=== PATIENT | male | born 1945 | race Caucasian/White ===

== ENCOUNTER 2019-05-01 11:25 | Day surgery (SDC) | payer OTHER, SELFPAY ==
[2019-05-01] VITALS (7 sets, daily range): BP systolic 112–160; BP diastolic 70–93; PULSE 61–88; RESP 16–20; TEMP 36.7–37.1; O2SAT 92–95; BMI 21.9
--- NOTE | 2019-05-01 11:30 | ED_ITS ---
Entered by Sarahy Harrell, acting as scribe for Zhang Garcia DO HPI - Extremity Injury (Upper) General: Chief Complaint: Extremity Injury, Upper Stated Complaint: finger injury/partial amputation Time Seen by Provider: 05/01/19 11:36 History of Present Illness: HPI narrative: 73 yo male presents with left ring finger injury. Pt states that he smashed his finger and the tip was amputated. Pt states that he ate a bowl of cereal and water and coffee at 730 this morning. MD complaint: injury to: left and finger Other Extremity Injury: Left: fingers (ring) Severity: moderate Review of Systems Const: Denies: fever, chills, body aches, change in appetite or change in weight Eyes: Denies: change in vision, blurry vision, blind spots, photophobia, eye discomfort or eye discharge ENMT: Denies: throat pain, uvular edema, enlarged tonsils, painful swallowing, mouth pain or swelling of lips/tongue Card: Denies: chest pain, palpitations, irregular heart rhythm or edema Resp: Denies: shortness of breath, productive cough, non-productive cough, stridor or pain on inspiration GI: Denies: abdominal pain, nausea, vomiting or vomiting blood : Denies: flank pain, difficulty urinating, painful urination or urinary frequency Musc: Reports: other (smashed left ring finger with amputation) PFSH ED PFSH: Statuses (acute, chronic, etc) shown below reflect problem list status as previously entered and may not be historically accurate Medical History Back pain (Acute) Diabetes (Acute) Gout (Acute) Hypertension (Acute) PTSD (post-traumatic stress disorder) (Acute) Surgical History H/O cystoscopy (Acute) H/O vasectomy (Acute) History of lumbar surgery (Acute) Social History Smoking and tobacco status: never smoked Physical Exam Const: COMMON NORMALS: no apparent distress, average body habitus, oriented x3, no limitations, healthy appearing, alert and well nourished HENMT: COMMON NORMALS: normocephalic, head/scalp atraumatic, hearing grossly normal bilaterally, external ears normal, EAC's normal, TM's normal bilaterally, external nose normal, nasal mucous membranes and turbinates normal, moist oral mucous membranes, oropharynx normal, dentition normal and gingiva normal HEAD & SCALP: normocephalic and atraumatic NOSE: external nose normal and nasal mucous membranes and turbinates normal EXTERNAL EAR: Yes external ears normal EXTERNAL AUDITORY CANAL: EAC's normal TYMPANIC MEMBRANE: TM's normal bilaterally THROAT: no uvular edema Eye: COMMON NORMALS: PERRL, EOMs intact bilaterally, conjunctivae normal, no scleral icterus, no papilledema, normal visual payne by confrontation and fundi normal bilaterally CONJUNCTIVA: Yes conjunctivae normal PUPIL: Yes PERRL DIRECT OPHTHALMOSCOPY: Yes no papilledema and Yes fundi normal bilaterally Neck/C-Spine: COMMON NORMALS: full ROM, no lymphadenopathy, supple, no meningeal signs, no JVD, thyroid normal and no carotid bruits THYROID: thyroid normal Chest: COMMONS NORMALS: inspection of chest normal and palpation of chest normal Resp: COMMON NORMALS: normal respiratory effort, no retractions, no use of a ccessory muscles, clear to auscultation bilaterally and percussion normal AUSCULTATION: clear to auscultation bilaterally PERCUSSION: percussion normal Cardio: COMMON NORMALS: no JVD, regular rate, regular rhythm, S1 normal heart sound, S2 normal heart sound, no gallops, no clicks, no murmurs, no rub and peripheral pulses 2+ throughout RATE: regular rate RHYTHM: regular rhythm HEART SOUNDS: S1 normal and S2 normal PERIPHERAL PULSES: pulses 2+ throughout GI: COMMON NORMALS: normal to inspection, nondistended, normoactive bowel sounds, soft to palpation, non-tender, no hepatosplenomegaly, no masses and no bruits PALPATION: Yes soft and Yes no hepatosplenomegaly : COMMON NORMALS: Yes no CVA tenderness BLADDER/KIDNEY EXAM: Yes no CVA tenderness Back/Pelvis: COMMON NORMALS: no CVA tenderness, thoracic and lumbar spine normal to inspection, no thoracic nor lumbar tenderness, thoraco-lumbar ROM normal and straight leg raise negative bilaterally Neuro: COMMON NORMALS: oriented x3 SENSORIUM/ORIENTATION: Yes alert MENINGEAL SIGNS: Yes no meningeal signs Skin: COMMON NORMALS: no rashes or lesions noted, no wounds, skin turgor normal, no jaundice, no petechiae and no mottling GENERAL SKIN EXAM: no rashes or lesions noted and turgor normal Course Vital Signs: Vital signs: Vital Signs Temperature 98.7 F 05/01/19 12:54 Pulse Rate 76 05/01/19 12:54 Respiratory Rate 18 05/01/19 12:54 Blood Pressure 139/70 05/01/19 12:54 Pulse Oximetry 92 05/01/19 12:54 MDM - Extremity Injury (Upper) Lab Data: Labs: Lab Results 05/01/19 05/01/19 05/01/19 Range/Units 11:45 11:45 11:45 WBC 9.5 (4.0-10.0) 10^3/ uL RBC 5.03 (4.1-5.3) 10^6/u L Hgb 14.8 (11.7-16.6) g/dL Hct 44.9 (42.0-52.0) % MCV 89.3 (80-94) fL MCH 29.4 (28.0-34.0) pg MCHC 33.0 (30.0-36.0) g/dL RDW 13.4 (12.1-15.1) % Plt Count 208 (130-400) 10^3/c mm MPV 9.6 (7.4-10.4) fL Neut % (Auto) 52.1 % Lymph % (Auto) 33.9 % [place] % (Auto) 7.0 % Eos % (Auto) 5.3 % Baso % (Auto) 1.4 % Neut # (Auto) 5.0 (1.8-7.7) 10^3/u L Lymph # (Auto) 3.2 (0.8-4.8) 10^3/u L [place] # (Auto) 0.7 (0.2-0.9) 10^3/u L Eos # (Auto) 0.5 (0.0-0.8) 10^3/u L Baso # (Auto) 0.1 (0.0-0.1) 10^3/u L Nucleated RBC % (a uto) 0 % Nucleated RBCs # 0.0 /100WBC PT 13.50 H (10.5-13.3) SECO NDS INR 1.00 (0.8-1.2) Sodium 143 (136-145) mmol/L Potassium 4.2 (3.5-5.1) mmol/L Chloride 101 (98-107) mmol/L Carbon Dioxide 27 (22-29) mmol/L Anion Gap 19.2 H (5-19) BUN 22 (8-23) mg/dL Creatinine 1.0 (0.7-1.2) mg/dL Glucose 102 (74-106) mg/dL POC Glucose (70-110) mg/dL Calcium 10.3 (8.5-10.5) mg/dL Total Bilirubin 0.5 (0.15-1.2) mg/dL AST 40 (0-40) U/L ALT 45 H (0-41) U/L Alkaline Phosphata se 64 (40-130) IU/L Total Protein 7.1 (6.6-8.7) g/dL Albumin 4.3 (3.5-5.2) g/dL Globulin 2.8 (1.3-4.6) g/dL 05/01/19 Range/Units 13:12 WBC (4.0-10.0) 10^3/ uL RBC (4.1-5.3) 10^6/u L Hgb (11.7-16.6) g/dL Hct (42.0-52.0) % MCV (80-94) fL MCH (28.0-34.0) pg MCHC (30.0-36.0) g/dL RDW (12.1-15.1) % Plt Count (130-400) 10^3/c mm MPV (7.4-10.4) fL Neut % (Auto) % Lymph % (Auto) % [place] % (Auto) % Eos % (Auto) % Baso % (Auto) % Neut # (Auto) (1.8-7.7) 10^3/u L Lymph # (Auto) (0.8-4.8) 10^3/u L [place] # (Auto) (0.2-0.9) 10^3/u L Eos # (Auto) (0.0-0.8) 10^3/u L Baso # (Auto) (0.0-0.1) 10^3/u L Nucleated RBC % (a uto) % Nucleated RBCs # /100WBC PT (10.5-13.3) SECO NDS INR (0.8-1.2) Sodium (136-145) mmol/L Potassium (3.5-5.1) mmol/L Chloride (98-107) mmol/L Carbon Dioxide (22-29) mmol/L Anion Gap (5-19) BUN (8-23) mg/dL Creatinine (0.7-1.2) mg/dL Glucose (74-106) mg/dL POC Glucose 115 (70-110) mg/dL Calcium (8.5-10.5) mg/dL Total Bilirubin (0.15-1.2) mg/dL AST (0-40) U/L ALT (0-41) U/L Alkaline Phosphata se (40-130) IU/L Total Protein (6.6-8.7) g/dL Albumin (3.5-5.2) g/dL Globulin (1.3-4.6) g/dL Discharge Plan Discharge Patient Disposition: Admitted As Inpatient Clinical Impression: 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
--- NOTE | 2019-05-01 11:46 | XR_ITS ---
WS: [id number] 3 views of the left fourth finger, 05/01/2019 Clinical Data: amputation Comparison: None. Findings: There is soft tissue and bony injury to the distal phalanx of the left fourth finger. There is a comm inuted fracture of the ungual tuft and loss of soft tissue beyond the midportion of the distal phalan x. The DIP and PIP joints are intact. There is a small radiopaque foreign body at the base of the dis an phalanx. XR/XR finger LT min 2V [id number] Impression: 1. Partial amputation of distal portion of left fourth distal phalanx with bone and soft tissue injury. 2. PIP and DIP joints are intact.
--- NOTE | 2019-05-01 11:46 | XR_ITS ---
WS: [id number] Portable AP upright chest, 05/01/2019 Clinical Data: preop Comparison: None. Findings: No nodules, masses or effusions are seen. The heart is normal. The pulmonary vascularity is not increased. No pneumonia or pneumothorax is seen. The aortic arch and descending aorta are minima lly tortuous. There is a left cardiophrenic fat pad or cyst. XR/XR chest 1V portable [id number] Impression: Atherosclerosis.
[2019-05-01] MEDS: morphine 4 mg/mL SDV 1 mL IVP (11:58)
[2019-05-01] MEDS: ondansetron 2 mg/ML SDV 2 mL 4 MG IVP (11:59)
[2019-05-01] MEDS: sodium chloride 0.9% 500 ML 999 ML IV (11:59)
[2019-05-01] MEDS: ceFAZolin 1,000 MG in sodium chloride 0.9% (plus) 50 ML 100 MG IV (12:05)
[2019-05-01] MEDS: tetanus-diphtheria tox (adult) 0.5 mL SDV IM (12:05)
[2019-05-01 12:14] LABS: Basophils # 0.1 10^3/uL (0.0-0.1); Basophils % 1.4 %; Eosinophils # 0.5 10^3/uL (0.0-0.8); Eosinophils % 5.3 %; Hematocrit 44.9 % (42.0-52.0); Hemoglobin 14.8 g/dL (11.7-16.6); Lymphocytes # 3.2 10^3/uL (0.8-4.8); Lymphocytes % 33.9 %; Mean Corpuscular Hemoglobin 29.4 pg (28.0-34.0); Mean Corpuscular Volume 89.3 fL (80-94); Mean Platelet Volume 9.6 fL (7.4-10.4); Monocytes # 0.7 10^3/uL (0.2-0.9); Neutrophils % 52.1 %; Nucleated Red Blood Cells % 0 %; Platelet Count 208 10^3/cmm (130-400); Red Blood Count 5.03 10^6/uL (4.1-5.3); Red Cell Distribution Width 13.4 % (12.1-15.1); White Blood Count 9.5 10^3/uL (4.0-10.0)
[2019-05-01 12:38] LABS: Alanine Aminotransferase 45 U/L (0-41); Albumin Level 4.3 g/dL (3.5-5.2); Alkaline Phosphatase 64 IU/L (40-130); Anion Gap 19.2 (5-19); Aspartate Amino Transferase 40 U/L (0-40); Blood Urea Nitrogen 22 mg/dL (8-23); Calcium 10.3 mg/dL (8.5-10.5); Carbon Dioxide 27 mmol/L (22-29); Chloride 101 mmol/L (98-107); Globulin 2.8 g/dL (1.3-4.6); Glucose 102 mg/dL (74-106); Potassium 4.2 mmol/L (3.5-5.1); Sodium 143 mmol/L (136-145); Total Bilirubin 0.5 mg/dL (0.15-1.2); Total Protein 7.1 g/dL (6.6-8.7)
[2019-05-01 13:16] LABS: Glucose Point of Care 115 mg/dL (70-110)
--- NOTE | 2019-05-01 13:26 | ANES.PREANES ---
Pre-Anesthetic Assessment Pre-Anesthetic Assessment: Height/Weight: Height 1.7 m Weight 63.503 kg Temp Pulse Resp BP Pulse Ox 98.7 F 76 18 139/70 92 05/01/19 12:54 05/01/19 12:54 05/01/19 12:54 05/01/19 12:54 05/01/19 12:54 Preop Diagnosis: Partial amputation left ring finger Proposed Procedure: Operation Date: 05/01/19 14:50 Proposed Procedures p Amputation Finger(Not Applicable) - Akanksha Diaz MD Last intake: Intake Last Liquid Date 05/01/19 Last Liquid Time 07:00 Last Solid Date 05/01/19 Last Solid Time 07:00 Social: Social History: Alcohol and Tobacco (occ cigar) Packs per day: occ Exam: Pre-Anes Outpt Exam: alert, oriented x 3, clear to auscultation bilaterally and regular rate & rhythm Airway: Submandibular: WNL Cervical ROM: Other (limited) MP: 3 Dentition: Other History/ROS: No significant history except as noted Pulmonary: Pulmonary: Asthma (mild) and Sleep apnea CV/HEM: CV/HEM: HTN : : None reported Hepatic: Hepatic: None reported GI: GI: GERD (occ) Metabolic: Metabolic: DM and Hyperlipidemia Musc/skel: Musc/skel: Lower Back Pain Neuropsych: Comments: PTSD Anesthetic Plan: ASA status: III Anesthesia: Anesthesia Evaluation and Regional (specify below) ([place]) Risk of > 500 ml blood loss (7ml/kg in children): No PFSH Anesthesia PFSH: Medical History Back pain (Acute) Diabetes (Acute) Gout (Acute) Hypertension (Acute) PTSD (post-traumatic stress disorder) (Acute) Surgical History H/O cystoscopy (Acute) H/O vasectomy (Acute) History of lumbar surgery (Acute) Social History Smoking and tobacco status: never smoked Data Anesthesia CBC & Chem 7: 05/01/19 11:45 05/01/19 11:45 Other Labs: Laboratory Results - last 48 hr 05/01/19 05/01/19 05/01/19 11:45 11:45 11:45 WBC 9.5 RBC 5.03 Hgb 14.8 Hct 44.9 MCV 89.3 MCH 29.4 MCHC 33.0 RDW 13.4 Plt Count 208 MPV 9.6 Neut % (Auto) 52.1 Lymph % (Auto) 33.9 [place] % (Auto) 7.0 Eos % (Auto) 5.3 Baso % (Auto) 1.4 Neut # (Auto) 5.0 Lymph # (Auto) 3.2 [place] # (Auto) 0.7 Eos # (Auto) 0.5 Baso # (Auto) 0.1 Nucleated RBC % (auto) 0 Nucleated RBCs # 0.0 PT 13.50 H INR 1.00 Sodium 143 Potassium 4.2 Chloride 101 Carbon Dioxide 27 Anion Gap 19.2 H BUN 22 Creatinine 1.0 Glucose 102 POC Glucose Calcium 10.3 Total Bilirubin 0.5 AST 40 ALT 45 H Alkaline Phosphatase 64 Total Protein 7.1 Albumin 4.3 Globulin 2.8 05/01/19 13:12 WBC RBC Hgb Hct MCV MCH MCHC RDW Plt Count MPV Neut % (Auto) Lymph % (Auto) [place] % (Auto) Eos % (Auto) Baso % (Auto) Neut # (Auto) Lymph # (Auto) [place] # (Auto) Eos # (Auto) Baso # (Auto) Nucleated RBC % (auto) Nucleated RBCs # PT INR Sodium Potassium Chloride Carbon Dioxide Anion Gap BUN Creatinine Glucose POC Glucose 115 Calcium Total Bilirubin AST ALT Alkaline Phosphatase Total Protein Albumin Globulin Cardiac Studies: No Data to Display
[2019-05-01] MEDS: sodium chloride 0.9% 1,000 ML 30 ML IV (13:49)
[2019-05-01] MEDS: vancomycin 1,000 MG in sodium chloride 0.9% 250 ML 250 MG IV (14:30)
--- NOTE | 2019-05-01 15:52 | PM.HPUD ---
H&P update H&P Update: DATE OF SURGERY/PROCEDURE: 05/01/19 DATE H&P PERFORMED: 05/01/19 PLANNED PROCEDURE: Operation Date: 05/01/19 14:50 Proposed Procedures p Amputation Finger(Not Applicable) - Akanksha Diaz MD Full H&P HPI: PRIMARY INDICATION/DIAGNOSIS FOR SURGICAL PROCEDURE: Degloving injury left ring finger secondary to log splitter PLANNED PROCEDURE: Revision amputation left ring finger HPI: 73-year-old gentleman was in his usual state of health when he was splitting logs. Apparently, his finger got caught in the knot of a log and when the log fell it pinching and degloving the distal tip of his finger. ROS: ROS: Review of systems is negative other than that related to the finger injury. Medications/Allergies: Current Medications: Current Medications Generic Name Dose Route Start Last Admin Trade Name Freq PRN Reason Stop Dose Admin Sodium Chloride 1,000 mls @ 30 ml s/hr 05/01/19 13:45 05/01/19 13:49 Sodium Chloride 0.9% IV 05/02/19 13:44 30 mls/hr .Q24H PAO Administration Perinent History: Medical/Surgical History: Medical History (Updated 05/01/19 @ 12:39 by ) Back pain (Acute) Diabetes (Acute) Gout (Acute) Hypertension (Acute) PTSD (post-traumatic stress disorder) (Acute) Family History: Noncontributory Social History: Social History Smoking and tobacco status: never smoked OTHER HISTORICAL INFORMATION: The patient has had surgical procedures including cystoscopy, vasectomy, lumbar surgery, and removal of a tophaceous gouty mass from his toe without issue with anesthesia Pertinent Exam Findings: PHYSICAL EXAM: alert, oriented x 3, clear to auscultation bilaterally, regular rate & rhythm and operative site marked OTHER PERTINENT EXAM FINDINGS: His left ring finger remains wrapped in gauze from the emergency department and this is not removed prior to entry into the operating room Pertinent Data: PERTINENT DATA: Hematology, coags, and chemistries are essentially normal. 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 This will require revision amputation in the operating room. Risks and complications are discussed with him and consents are signed. The patient understands and agrees to proceed. Status: Acute Code(s): S68.615A - Complete traumatic transphalangeal amputation of left ring finger, initial encounter
--- NOTE | 2019-05-01 15:53 | P.HP_ITS ---
Providers/Chief Complaint Primary Care Provider: Merritt Cook DO Chief Complaint: LEFT RING DIDGET AMPUTATION History of Present Illness Everardo Roman is a 73 year old male Medications/Allergies Home Medications Medication Instructions Recorded Confirmed Last Taken Type Celery Seed 1 tab PO DAILY 05/01/19 05/01/19 05/01/19 History allopurinol 300 mg PO DAILY 05/01/19 05/01/19 05/01/19 History aspirin 81 mg PO DAILY 05/01/19 05/01/19 05/01/19 History colchicine 0.6 mg PO BID PRN 05/01/19 05/01/19 Unknown History gabapentin 600 mg PO TID 05/01/19 05/01/19 05/01/19 History hydrochlorothiazide 25 mg PO DAILY 05/01/19 05/01/19 05/01/19 History lisinopril 40 mg PO DAILY 05/01/19 05/01/19 05/01/19 History metformin 500 mg PO BID 05/01/19 05/01/19 05/01/19 History multivitamin 1 tab PO DAILY 05/01/19 05/01/19 05/01/19 History naproxen sodium [Aleve] 220 mg PO BID PRN 05/01/19 05/01/19 05/01/19 History rosuvastatin [Crestor] 20 mg PO DAILY 05/01/19 05/01/19 05/01/19 History tramadol 50 mg PO BID PRN 05/01/19 05/01/19 Unknown History vit C-s.agsjte-bwabdf-dgbyg sd 1 cap PO DAILY 05/01/19 05/01/19 05/01/19 History [Tart Sebastian] Allergies Allergy/AdvReac Type Severity Reaction Status Date / Time No Known Allergies Allergy Verified 05/01/19 11:35 PFSH Acute PFSH: Statuses (acute, chronic, etc) shown below reflect problem list status as previously entered and may not be historically accurate Medical History Back pain (Acute) Diabetes (Acute) Gout (Acute) Hypertension (Acute) PTSD (post-traumatic stress disorder) (Acute) Surgical History H/O cystoscopy (Acute) H/O vasectomy (Acute) History of lumbar surgery (Acute) Social History Smoking and tobacco status: never smoked Vitals/I&O/Wt Last Vital Signs Temp 98.7 F 05/01/19 12:54 Pulse 76 05/01/19 12:54 Resp 18 05/01/19 12:54 BP 139/70 05/01/19 12:54 Pulse Ox 92 05/01/19 12:54 Weight last 48 hrs Weight 140 lb Data : 05/01/19 11:45 05/01/19 11:45 Coding Level of Care Code Acute Html Web Developer for Babar Ng
[2019-05-01] MEDS: vancomycin 1,000 MG SDV 1000 MG IRRIGATION (16:36)
--- NOTE | 2019-05-01 17:23 | P.OP_ITS ---
Operative Report Date of procedure: May 01, 2019 Pre-op Diagnosis: Partial amputation left ring finger Post-op diagnosis: same Procedure Done: Left ring finger DIP disarticulation with closure of complex wound and nail ablation Specimens removed/disposition: Skin and bone, disposed of. Pathology: none sent Surgeon: Akanksha Diaz Senior Technical Project Manager: [facility] OR technicians Anesthesia: MAC (with Edgard Block) Estimated blood loss (mL): 5 Tourniquet time (min): 47 IV fluids (mL): 900 Complications: None. Findings: Significant comminution of the distal phalanx with irregular soft tissue loss. Condition: stable Disposition: same day Brief History: This 73-year-old gentleman was in his usual state of health when he attempted to catch a log as it was falling off a log splitter. His finger caught in a knot in the log and was smashed between the log and the edge of the log splitter. He had a degloving type injury. He presented to the emergency department and was scheduled for intraoperative revision amputation. Procedure: The patient was brought to the operating theater. The patient had a Edgard block with MAC. The tourniquet was elevated to 250 mmHg for a total tourniquet time of 47 minutes. The patient was also given vancomycin 1 g preoperatively. The arm was then prepped and draped with DuraPrep in usual fashion with the arm draped free. A surgical pause was performed. At the time, the surgical pause, we confirmed the site and side of surgery. We also confirmed the patient's identity, appropriate and timely administration of preoperative antibiotics and preoperative surgical markings. The patient's finger was evaluated. There was complete loss of the volar pad of the left ring finger distal to the DIP joint. There was also nail loss and minimal remnant of the nailbed. Soft tissue was evaluated and debrided as necessary. Hemostasis was obtained. The bone was then evaluated and found to be quite comminuted. The comminuted bone was debrided with a combination of rongeurs and bone biters. After evaluation, a disarticulation was necessary as there was only a sliver of bone not fracture distal to the DIP joint. Soft tis daniel was further debrided. A Z-type closure was accomplished after nail ablation. The germinal matrix was removed. The tourniquet was released after 47 minutes. A sterile dressing was placed consisting of Xeroform gauze, 4 x 4's, and tube gauze. There were no complications. There were no specimens. The procedure was well tolerated. Plan is the patient will be discharged home.
== END 2019-05-01 18:18 | disposition home or self-care (01) ==
LOC: ER 12:39 → OR 12:41
PROVIDERS: Emergency Provider Family Medicine; Family Provider Emergency Medicine Emergency Medical Services; PCP Emergency Medicine Emergency Medical Services; Visit Provider Specialist
PROC: (CPT 26951; principal; 2019-05-01 14:50)
DX: S68.125A Partial traumatic metacarpophalangeal amputation of left ring finger, initial encounter (principal); W23.0XXA Caught, crushed, jammed, or pinched between moving objects, initial encounter; J45.909 Unspecified asthma, uncomplicated; G47.30 Sleep apnea, unspecified; I10 Essential (primary) hypertension; K21.9 Gastro-esophageal reflux disease without esophagitis; E11.9 Type 2 diabetes mellitus without complications; E78.5 Hyperlipidemia, unspecified
CPT/HCPCS: 26951; 12345; 36416; 71045; 73140; 80053; 82962; 85025; 85610; 90471; 90472; 90714; 96365; 96374; 99282; J0690; J2001; J2250; J2270; J2405; J2704; J2765; J3010; J3370; J7030; J7040; J7050

== ENCOUNTER → 2019-05-15 12:14 | Outpatient (BNVA) | payer OTHER, SELFPAY | PROVIDERS: Family Provider Emergency Medicine Emergency Medical Services; PCP Emergency Medicine Emergency Medical Services; Visit Provider Specialist | DX: Z09 Encounter for follow-up examination after completed treatment for conditions other than malignant neoplasm (principal); Z89.022 Acquired absence of left finger(s) | CPT/HCPCS: 73140 ==

== ENCOUNTER 2019-10-19 14:18 | Emergency (ER) | payer OTHER, SELFPAY ==
[2019-10-19] VITALS (7 sets, daily range): BP systolic 111–130; BP diastolic 59–72; PULSE 71–81; RESP 16–18; TEMP 36.4–36.7; O2SAT 90–96; BMI 35.6
--- NOTE | 2019-10-19 14:39 | ED_ITS ---
HPI - Extremity Problem General: Chief complaint: Extremity Problem,Nontraumatic Stated complaint: l leg pain and swollen Time Seen by Provider: 10/19/19 14:24 History of Present Illness: HPI Narrative: 74-year-old male patient presents to the emergency department with his family member. Complaints of left lower extremity pain redness and swelling for the past 24 hours. He reports pain with ambulation. History of DVT in affected extremity approximately 5 years ago. He denies shortness of breath, chest pain or fever. MD Complaint: extremity pain (Left lower leg) and extremity swelling (Left lower leg) Onset (ago): hour(s) (24) Pain Consistency: constant Location: left and lower extremity Severity scale (1-10): 5 Quality: aching Relieving factors: rest Exacerbating factors: weight bearing Associated symptoms: Reports no associated symptoms and rash; Deny chest pain or fever(s) Context: history of DVT Review of Systems General: Reports: 10 or more systems reviewed and unremarkable except in HPI and below Const: Denies: fever(s), chills or diaphoresis Card: Denies: chest pain, palpitations or irregular heart rhythm Resp: Denies: dyspnea, productive cough, non-productive cough or wheezing GI: Denies: abdominal pain, nausea or vomiting Musc: Reports: extremity swelling; Denies: back pain Skin/Breast: Reports: rash, erythema (Left lower extremity) and changes in skin color (Left lower extremity); Denies: pruritus Neuro: Denies: headache(s), weakness in extremities or behavioral changes PFS ED PFSH: Medical History (Updated 10/19/19 @ 17:53 by PELON Bishop) Back pain 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 Diabetes Gout Hypertension PTSD (post-traumatic stress disorder) Surgical History H/O cystoscopy H/O vasectomy History of lumbar surgery Family History Mother Glaucoma Dementia Father Brain aneurysm Brother Psychiatric illness Denies family history of Diabetes CAD (coronary artery disease) Clotting disorder Hyperlipidemia Chronic kidney disease (CKD) Suicide Anesthesia complication Bleeding disorder Family history of premature coronary artery disease Lung disease Cancer Hypertension Stroke Social History (Updated 10/19/19 @ 14:39 by Bartolo Watts RN) Smoking and tobacco status: current some day smoker cigars Cigar details: occasionally Alcohol intake: current Alcohol intake frequency: holidays/special occasions only Substance/Drug Use: never Current occupational status: retired Physical Exam Const: COMMON NORMALS: no acute distress, patient oriented x3, healthy appearing and alert GENERAL APPEARANCE: cooperative, comfortable and well hydrated Lymph: LYMPHATIC: no lymphadenopathy noted Chest: COMMONS NORMALS: normal inspection of the chest Resp: COMMON NORMALS: normal respiratory effort and clear to auscultation bilaterally AUSCULTATION: clear to auscultation bilaterally Cardio: COMMON NORMALS: regular rhythm, S1 normal heart sound present and S2 normal heart sound present RHYTHM: regular rhythm HEART SOUNDS: S1 normal heart sound present and S2 normal heart sound present GI: COMMON NORMALS: Soft to palpation and non-tender INSPECTION: Yes normal to inspection PALPATION: Yes Soft to palpation : COMMON NORMALS: Yes no CVA tenderness BLADDER/KIDNEY EXAM: Yes no CVA t enderness Back/Pelvis: COMMON NORMALS: no CVA tenderness and thoracic and lumbar spine normal to inspection Extremity: COMMON NORMALS: capillary refill normal GENERAL: Yes calf tenderness (Left calf) and Yes edema (Left lower extremity) OTHER: Not able to reproduce joint tenderness of the left knee or ankle, range of motion noted, ambulatory with a limp, soft tissue tenderness of the left lower extremity. Neuro: COMMON NORMALS: patient oriented x3 and no focal motor deficits SENSORIUM/ORIENTATION: Yes alert Psych: COMMON NORMALS: mental status grossly normal, Normal thought process present and cooperative ACTIVITY/MOTOR BEHAVIOR: Yes appropriate eye contact THOUGHT PROCESS: Normal thought process present Skin: SKIN IMAGES (MALE): 1. Erythema, edema, posterior calf tenderness of the left lower extremity, erythematous circumferential Course Vital Signs: Vital signs: Vital Signs Temperature 98.0 F 10/19/19 14:34 Pulse Rate 73 10/19/19 17:35 Respiratory Rate 18 10/19/19 17:35 Blood Pressure 128/59 10/19/19 17:35 Pulse Oximetry 92 10/19/19 17:35 MDM - Extremity (Nontraumatic) MDM Narrative: Medical decision making narrative: 89-year-old male patient presents to the emergency department with complaints of left lower extremity pain, erythema and swelling. Case was discussed with Dr. Chambers as nonocclusive venous thrombosis in the distal femoral-popliteal vein was evaluated on ultrasound, also of note, superficial lymph nodes of the leg. Results were discussed with the patient and family, he is requesting to go home. Use of Eliquis and antibiotics was discussed, he is aware being diabetic will increase his risk for further worsening of infection. He agrees for reevaluation this week by [facility] Lymphadenitis was discussed and if appears, he is to return to the emergency department immediately. Verbalized understanding of lab values and radiology exams today. Questions were answered. Lab Data: Labs: Lab Results 10/19/19 10/19/19 Range/Units 14:55 14:55 WBC 13.3 H (4.0-10.0) 10^3/ uL RBC 5.13 (4.1-5.3) 10^6/u L Hgb 15.5 (11.7-16.6) g/dL Hct 48.4 (42.0-52.0) % MCV 94.3 H (80-94) fL MCH 30.2 (28.0-34.0) pg MCHC 32.0 (30.0-36.0) g/dL RDW 14.2 (12.1-15.1) % Plt Count 167 (130-400) 10^3/c mm MPV 9.3 (7.4-10.4) fL Neut % (Auto) 69.0 % Lymph % (Auto) 20.8 % [place] % (Auto) 8.4 % Eos % (Auto) 0.5 % Baso % (Auto) 1.0 % Neut # (Auto) 9.15 H (1.8-7.7) 10^3/u L Lymph # (Auto) 2.8 (0.8-4.8) 10^3/u L [place] # (Auto) 1.1 H (0.2-0.9) 10^3/u L Eos # (Auto) 0.1 (0.0-0.8) 10^3/u L Baso # (Auto) 0.1 (0.0-0.1) 10^3/u L Nucleated RBC % (a uto) 0 % Nucleated RBCs # 0.0 /100WBC Sodium 137 (136-145) mmol/L Potassium 3.7 (3.5-5.1) mmol/L Chloride 96 L (98-107) mmol/L Carbon Dioxide 30 H (22-29) mmol/L Anion Gap 14.7 (5-19) BUN 24 H (8-23) mg/dL Creatinine 1.4 H (0.7-1.2) mg/dL Glucose 110 (65-115) mg/dL Calculated Osmolal ity 281 L (285-295) mOsm/k g Calcium 9.2 (8.5-10.5) mg/dL Total Bilirubin 0.9 (0.15-1.2) mg/dL AST 28 (0-40) U/L ALT 28 (0-41) U/L Alkaline Phosphata se 54 (40-130) IU/L Total Protein 7.4 (6.6-8.7) g/dL Albumin 4.4 (3.5-5.2) g/dL Globulin 3.0 (1.3-4.6) g/dL Imaging Data^: US: Radiologist's impression: [place] [address] Ultrasound Report Signed Patient: Everardo Roman #: [id number] : 6Acct#:[id number] Age/Sex: 74 / MADM Date: 10/19/19 Loc: ERRoom/Bed: Attending Dr: Ordering Provider/Ordering MD: Gloria Mchugh Date of Service: 10/19/19 Procedure(s): CV venous duplex [facility] [address] Accession Number(s): [id number] Report Number: [id number] PROCEDURE INFORMATION: Exam: US Duplex Left Lower Extremity Veins, Limited Exam date and time: 10/19/2019 2:51 PM Age: 74 years old Clinical indication: Pain; Leg, lower; Left; Patient HX: Patient states history of dvt; Additional info: Lle edema and pain TECHNIQUE: Imaging protocol: Real-time Duplex ultrasound of the Left Lower Extremity with 2-D frye scale, color Doppler flow and spectral waveform analysis with image documentation. Limited exam focused on the left lower extremity veins. COMPARISON: No relevant prior studies available. FINDINGS: Left deep veins: The common femoral, proximal and mid femoral, and proximal profunda femoral veins are patent without thrombus. Normal Doppler waveforms. Normal compressibility and/or augmentation response. Left superficial veins: Unremarkable. Saphenofemoral junction is patent without thrombus. Soft tissues: Unremarkable. Lymph nodes: Superficial lymph nodes are present adjacent to the left profundus measuring 1.5 cm and 1.8 cm respectively. Other findings: There is nonocclusive thrombus present in the distal aspect of the femoral vein and the popliteal vein. These findings show intraluminal thrombus, decreased compressibility, but still demonstrate flow. These changes represent chronic venous thrombosis. . US/[place] [id number] IMPRESSION: 1. Nonocclusive probably chronic venous thrombosis distal femoral and popliteal veins. 2. Superficial lymph nodes are seen near the left profundal. 3. Otherwise negative examination Dictated By:Federico Ortiz Discharge Plan Discharge Clinical Impression: Diabetes Cellulitis Qualifiers: Site of cellulitis: extremity Site of cellulitis of extremity: lower extremity Laterality: left Qualified Code(s): L03.116 - Cellulitis of left lower limb Superficial thrombophlebitis Qualifiers: Superficial thrombophlebitis-Involved body area: lower extremity Laterality: left Qualified Code(s): I80.02 - Phlebitis and thrombophlebitis of superficial vessels of left lower extremity Condition: Stable Prescriptions: New Augmentin 875-125 mg tablet 1 tab PO BID Qty: 20 RF: 0 Eliquis 5 mg tablet 5 mg PO BID Qty: 30 RF: 0 Discontinued aspirin 81 mg Tablet,Chewable 81 mg PO DAILY RF: 0 No Action multivitamin Tablet 1 tab PO DAILY RF: 0 tramadol 50 mg Tablet 50 mg PO BID PRN (Reason: Pain) RF: 0 metformin 1,000 mg Tablet 500 mg PO BID RF: 0 gabapentin 300 mg Capsule 600 mg PO TID RF: 0 allopurinol 300 mg Tablet 300 mg PO DAILY RF: 0 hydrochlorothiazide 25 mg Tablet 25 mg PO DAILY RF: 0 lisinopril 40 mg Tablet 40 mg PO DAILY RF: 0 Crestor 40 mg Tablet 20 mg PO DAILY RF: 0 Tart Sebastian 90-271-35-75-20 mg Capsule 1 cap PO DAILY RF: 0 Aleve 220 mg Capsule 220 mg PO BID PRN (Reason: Pain) RF: 0 colchicine 0.6 mg Capsule 0.6 mg PO BID PRN (Reason: gout) RF: 0 Celery Seed 1 tab PO DAILY RF: 0 Napanoch 7.5-325 mg tablet 1 tab PO Q6H PRN (Reason: pain) Qty: 30 RF: 0 Discharge Orders: Discharge Order (Routine); Ordered 10/19/19 Ordered By: Gloria Mchugh Referrals: [facility] [Primary Care Provider] - Discharge Diet: Usual diet Discharge Activity: Limit activity as instructed Patient Instructions: Cellulitis (ED), Deep Venous Thrombosis (ED) Activity Restrictions/Additional Instructions: Limit use of the left lower extremity, keep the left lower extremity elevated, monitor for bleeding as you will be on a new medication for the blood clot in your leg. Monitor for dark tarry stools, prolonged bleeding will be expected if you cut yourself. Follow-up with your doctor this week without fail, reevaluation of the infection will be needed, continue to monitor blood sugars as directed by your primary care provider. Take antibiotics until all gone. Take with food. If you develop shortness of breath, uncontrolled bleeding or other concerning symptoms, you will need to return to the emergency department. Coding Level of Care Code ED [employer] Compliance Director for Babar Fwleesa Exam Comprehensive
--- NOTE | 2019-10-19 14:48 | USR_ITS ---
PROCEDURE INFORMATION: Exam: US Duplex Left Lower Extremity Veins, Limited Exam date and time: 10/19/2019 2:51 PM Age: 74 years old Clinical indication: Pain; Leg, lower; Left; Patient HX: Patient states history of dvt; Additional info: Lle edema and pain TECHNIQUE: Imaging protocol: Real-time Duplex ultrasound of the Left Lower Extremity with 2-D frye scale, color Doppler flow and spectral waveform analysis with image documentation. Limited exam focused on the left lower extremity veins. COMPARISON: No relevant prior studies available. FINDINGS: Left deep veins: The common femoral, proximal and mid femoral, and proximal profunda femoral veins are patent without thrombus. Normal Doppler waveforms. Normal compressibility and/or augmentation response. Left superficial veins: Unremarkable. Saphenofemoral junction is patent without thrombus. Soft tissues: Unremarkable. Lymph nodes: Superficial lymph nodes are present adjacent to the left profundus measuring 1.5 cm and 1.8 cm respectively. Other findings: There is nonocclusive thrombus present in the distal aspect of the femoral vein and the popliteal vein. These findings show intraluminal thrombus, decreased compressibility, but still demonstrate flow. These changes represent chronic venous thrombosis. . US/[place] [id number] IMPRESSION: 1. Nonocclusive probably chronic venous thrombosis distal femoral and popliteal veins. 2. Superficial lymph nodes are seen near the left profundal. 3. Otherwise negative examination
[2019-10-19 15:08] LABS: Basophils # 0.1 10^3/uL (0.0-0.1); Eosinophils # 0.1 10^3/uL (0.0-0.8); Eosinophils % 0.5 %; Hematocrit 48.4 % (42.0-52.0); Hemoglobin 15.5 g/dL (11.7-16.6); Lymphocytes # 2.8 10^3/uL (0.8-4.8); Lymphocytes % 20.8 %; Mean Corpuscular Hemoglobin 30.2 pg (28.0-34.0); Mean Corpuscular Volume 94.3 fL (80-94); Mean Platelet Volume 9.3 fL (7.4-10.4); Monocytes # 1.1 10^3/uL (0.2-0.9); Monocytes % 8.4 %; Neutrophils # 9.15 10^3/uL (1.8-7.7); Nucleated Red Blood Cells % 0 %; Platelet Count 167 10^3/cmm (130-400); Red Blood Count 5.13 10^6/uL (4.1-5.3); Red Cell Distribution Width 14.2 % (12.1-15.1); White Blood Count 13.3 10^3/uL (4.0-10.0)
[2019-10-19 15:23] LABS: Alanine Aminotransferase 28 U/L (0-41); Albumin Level 4.4 g/dL (3.5-5.2); Alkaline Phosphatase 54 IU/L (40-130); Anion Gap 14.7 (5-19); Aspartate Amino Transferase 28 U/L (0-40); Blood Urea Nitrogen 24 mg/dL (8-23); Calcium 9.2 mg/dL (8.5-10.5); Carbon Dioxide 30 mmol/L (22-29); Chloride 96 mmol/L (98-107); Glucose 110 mg/dL (65-115); Osmolality Calculated 281 mOsm/kg (285-295); Potassium 3.7 mmol/L (3.5-5.1); Sodium 137 mmol/L (136-145); Total Bilirubin 0.9 mg/dL (0.15-1.2); Total Protein 7.4 g/dL (6.6-8.7)
[2019-10-19] MEDS: ceFAZolin 1,000 MG in sodium chloride 0.9% (plus) 50 ML 100 MG IV (17:16)
[2019-10-19] MEDS: apixaban 5 mg Tablet 10 MG PO (18:14)
[2019-10-19 18:23] LABS: Add Urine Microscopic? NO
[2019-10-19 18:25] LABS: Bilirubin Urine Neg (NEGATIVE); Blood Urine Neg (Negative); Glucose Urine UA Norm (Normal); Ketones Urine Negative (Negative); Leukocyte Esterase Urine Negative (Negative); Nitrate Urine Negative (Negative); Protein Urine Neg (Negative); Urine Appearance Clear (CLEAR); Urine Color Yellow (Yellow); Urobilinogen Urine 1 mg/dL (Negative); pH Urine 5 (5-7)
== END 2019-10-19 18:28 ==
PROVIDERS: Emergency Provider Nurse Practitioner Family
DX: I80.02 Phlebitis and thrombophlebitis of superficial vessels of left lower extremity (principal); L03.116 Cellulitis of left lower limb; E11.9 Type 2 diabetes mellitus without complications; I10 Essential (primary) hypertension; F17.210 Nicotine dependence, cigarettes, uncomplicated
CPT/HCPCS: 12345; 36415; 80053; 81003; 85025; 87040; 93971; 96365; 99283; 99284; J0690

== ENCOUNTER 2021-07-25 06:06 | Day surgery (SDC) | payer OTHER, SELFPAY ==
[2021-07-22 10:07] VITALS: BMI 31.0
[2021-07-25 06:30] VITALS: BP 116/64; PULSE 66; RESP 18; TEMP 36.2; O2SAT 96
[2021-07-25] MEDS: sodium chloride 0.9% 1,000 ML 30 ML IV (06:33)
--- NOTE | 2021-07-25 06:58 | ANES.PREANE2 ---
Pre-Anesthetic Assessment Height/Weight: Height 1.7 m Weight 89.811 kg Temp Pulse Resp BP Pulse Ox 97.2 F L 66 18 116/64 96 07/25/21 06:30 07/25/21 06:30 07/25/21 06:30 07/25/21 06:30 07/25/21 06:30 Preop Diagnosis: polyps Operation Date: 07/25/21 07:30 Proposed Procedures p Colonoscopy g0105/z86.010(Not Applicable) - Tor Garcia MD Familial anesthetic complications: none Was Beta Angel Luis taken within 24 hours: N/A Was Clonidine taken within 24 hours: N/A Last intake: Intake Last Liquid Date 07/24/21 Last Liquid Time 23:00 Last Solid Date 07/23/21 Last Solid Time 17:00 Last Intake: 23:00 Social No alcohol and No tobacco Exam alert, oriented x 3, clear to auscultation bilaterally and regular rate & rhythm Airway Submandibular: within normal limits Cervical ROM: within normal limits Mallampati: Class II Dentition: full Pulmonary Chronic Obstructive Pulmonary Disease and Sleep Apnea (no CPAP) CV/HEM Deep Vein Thrombosis (2019) and Hypertension None reported Hepatic None reported GI Gastroesophageal Reflux Disease Metabolic Diabetes Mellitus (avg 100-120) Musc/skel Lower Back Pain Neuropsych None reported Anesthetic Plan ASA status: 3 Anesthesia: MAC Risk of > 500 ml blood loss (7ml/kg in children): No Medications/Allergies Home Medications Medication Instructions Recorded Confirmed Last Taken Type allopurinol 300 mg tablet 300 mg PO DAILY 05/01/19 07/25/21 07/24/21 History gabapentin 300 mg capsule 600 mg PO TID 05/01/19 07/25/21 07/24/21 History hydrochlorothiazide 25 mg tablet 25 mg PO DAILY 05/01/19 07/25/21 07/24/21 History lisinopril 40 mg tablet 40 mg PO DAILY 05/01/19 07/25/21 07/24/21 History metformin 1,000 mg tablet 500 mg PO BID 05/01/19 07/25/21 07/24/21 History multivitamin 1 tab PO DAILY 05/01/19 07/25/21 07/24/21 History naproxen sodium 220 mg capsule 220 mg PO BID PRN 05/01/19 07/25/21 07/24/21 History (Aleve) rosuvastatin 40 mg tablet (Crestor) 20 mg PO DAILY 05/01/19 07/25/21 07/24/21 History vit C 30 mg-s.sebastian 250 mg-celery 1 cap PO DAILY 05/01/19 07/25/21 07/24/21 History seed 75 mg-grape seed extrt capsule (Tart Sebastian) warfarin 2 mg tablet 2 mg PO DAILY 01/30/21 07/25/21 07/19/21 History cetirizine 10 mg tablet (Zyrtec) 10 mg PO DAILY 07/22/21 07/25/21 07/24/21 History Allergies Allergy/AdvReac Type Severity Reaction Status Date / Time No Known Allergies Allergy Verified 07/25/21 06:28 Current Medications Generic Name Dose Route Start Last Admin Trade Name Freq PRN Reason Stop Dose Admin Sodium Chloride 1,000 mls @ 30 mls/hr 07/25/21 06:30 07/25/21 06:33 Sodium Chloride 0.9% IV 30 mls/hr .Q24H PAO Administration PFSH Anesthesia Medical History Back pain 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 Diabetes Gout Hypertension PTSD (post-traumatic stress disorder) Surgical History H/O cystoscopy H/O vasectomy History of lumbar surgery Family History Mother Glaucoma Dementia Father Brain aneurysm Brother Psychiatric illness Denies family history of Diabetes CAD (coronary artery disease) Clotting disorder Hyperlipidemia Chronic kidney disease (CKD) Suicide Anesthesia complication Bleeding disorder Family history of premature coronary artery disease Lung disease Cancer Hypertension Stroke Social History Smoking and tobacco status: current some day smoker cigars Cigar details: occasionally Alcohol intake: current Alcohol intake frequency: holidays/special occasions only Current occupational status: retired Data Anesthesia Cardiac Studies: No Data to Display
--- NOTE | 2021-07-25 07:32 | P.HP_ITS ---
Same Day Surgery H&P Indication for Procedure/HPI DATE OF PROCEDURE: July 25, 2021 CHIEF COMPLAINT/INDICATIONFOR SURGICAL PROCEDURE: History of colon polyps PREOP DIAGNOSIS: polyps PLANNED PROCEDURE: Operation Date: 07/25/21 07:30 Proposed Procedures p Colonoscopy g0105/z86.010(Not Applicable) - Tor Garcia MD Medications/Allergies* Home Medications Medication Instructions Recorded Confirmed Type allopurinol 300 mg tablet 300 mg PO DAILY 05/01/19 07/25/21 History gabapentin 300 mg capsule 600 mg PO TID 05/01/19 07/25/21 History hydrochlorothiazide 25 mg tablet 25 mg PO DAILY 05/01/19 07/25/21 History lisinopril 40 mg tablet 40 mg PO DAILY 05/01/19 07/25/21 History metformin 1,000 mg tablet 500 mg PO BID 05/01/19 07/25/21 History multivitamin 1 tab PO DAILY 05/01/19 07/25/21 History naproxen sodium 220 mg capsule 220 mg PO BID PRN 05/01/19 07/25/21 History (Aleve) rosuvastatin 40 mg tablet (Crestor) 20 mg PO DAILY 05/01/19 07/25/21 History vit C 30 mg-s.sebastian 250 mg-celery 1 cap PO DAILY 05/01/19 07/25/21 History seed 75 mg-grape seed extrt capsule (Tart Sebastian) warfarin 2 mg tablet 2 mg PO DAILY 01/30/21 07/25/21 History cetirizine 10 mg tablet (Zyrtec) 10 mg PO DAILY 07/22/21 07/25/21 History Allergies/Adverse Reactions Allergy/AdvReac Type Severity Reaction Status Date / Time No Known Allergies Allergy Verified 07/25/21 06:28 Current Medications: Generic Name Dose Route Start Last Admin Trade Name Freq PRN Reason Stop Dose Admin Sodium Chloride 1,000 mls @ 30 mls/hr 07/25/21 06:30 07/25/21 06:33 Sodium Chloride 0.9% IV 30 mls/hr .Q24H PAO Administration Pertinent History/Comorbid Conditions* Medical History (Updated 07/06/21 @ 11:05 by Tor Garcia MD) Back pain 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 Diabetes Gout Hypertension PTSD (post-traumatic stress disorder) Surgical History (Updated 05/01/19 @ 11:47 by Sarahy Harrell) H/O cystoscopy H/O vasectomy History of lumbar surgery Family History (Updated 05/07/19 @ 10:57 by Carisa Topete LPN) Brain aneurysm Father Dementia Mother Psychiatric illness Brother Glaucoma Mother Denies family history of Diabetes CAD (coronary artery disease) Clotting disorder Hyperlipidemia Chronic kidney disease (CKD) Suicide Anesthesia complication Bleeding disorder Family history of premature coronary artery disease Lung disease Cancer Hypertension Stroke Social History Smoking and tobacco status: current some day smoker cigars Cigar details: occasionally Alcohol intake: current Alcohol intake frequency: holidays/special occasions only Current occupational status: retired Pertinent Exam Findings alert, oriented x 3, clear to auscultation bilaterally, regular rate & rhythm, operative site marked and procedure specific exam findings Recommendations Surgery/Procedure today Coding Level of Care Code Acute [employer] Maker for Babar Ng
[2021-07-25 07:45] VITALS: BP 90/65; PULSE 62; RESP 16; TEMP 36.3; O2SAT 93
[2021-07-25 08:00] VITALS: BP 122/79; PULSE 57; RESP 16; O2SAT 94
--- NOTE | 2021-07-25 14:45 | ANE.PACU2 ---
Inpatient post-anesthesia follow up: Airway intact: Yes Vital signs: Temperature 97.4 F Pulse Rate 57 Respiratory Rate 16 Blood Pressure 122/79 Pulse Oximetry 94 Oxygen Delivery Me thod Room Air Oxygen Flow Rate Fraction of Inspir ed Oxygen Hydration adequate: Yes Nausea and vomiting: No Pain level: 1 Mental status: Baseline
== END 2021-07-25 08:12 | disposition home or self-care (01) ==
PROVIDERS: Visit Provider Internal Medicine
PROC: 0DJD8ZZ Inspection of Lower Intestinal Tract, Via Natural or Artificial Opening Endoscopic (ICD-10-PCS; CPT 45378; principal; 2021-07-25 07:30)
DX: Z12.11 Encounter for screening for malignant neoplasm of colon (principal); Z86.010 Personal history of colon polyps; Z79.01 Long term (current) use of anticoagulants; E11.9 Type 2 diabetes mellitus without complications; Z79.84 Long term (current) use of oral hypoglycemic drugs; I10 Essential (primary) hypertension; F17.290 Nicotine dependence, other tobacco product, uncomplicated; K57.30 Diverticulosis of large intestine without perforation or abscess without bleeding; J44.9 Chronic obstructive pulmonary disease, unspecified; G47.30 Sleep apnea, unspecified; K21.9 Gastro-esophageal reflux disease without esophagitis; Z86.718 Personal history of other venous thrombosis and embolism
CPT/HCPCS: 45378; J7030

== ENCOUNTER 2021-11-27 18:15 | Emergency (ER) | payer OTHER, SELFPAY ==
[2021-11-27 18:18] VITALS: BP 156/81; PULSE 55; RESP 16; TEMP 36.3; O2SAT 96; BMI 28.8
--- NOTE | 2021-11-27 18:54 | CTR_ITS ---
PROCEDURE INFORMATION: Exam: CT Abdomen And Pelvis With Contrast Exam date and time: 11/27/2021 7:26 PM Age: 76 years old Clinical indication: Abdominal pain; Localized; Left lower quadrant (llq); Additional info: Llq pain TECHNIQUE: Imaging protocol: Computed tomography of the abdomen and pelvis with contrast. Radiation optimization: All CT scans at this facility use at least one of these dose optimization techniques: automated exposure control; mA and/or kV adjustment per patient size (includes targeted exams where dose is matched to clinical indication); or iterative reconstruction. Contrast material: OMNI 350; Contrast volume: 80 ml; Contrast route: INTRAVENOUS (IV); COMPARISON: [place] [id number] 10/19/2019 3:34 PM RADIATION DOSE METRICS: Total DLP (mGy-cm): 686.03 FINDINGS: Lungs: There is mild ground-glass opacity in the lung bases and lingula concerning for mild pneumonitis versus atelectasis. Liver: Unremarkable.No mass. Gallbladder and bile ducts: Normal. No calcified stones. No ductal dilation. Pancreas: The pancreas is normal. Spleen: The spleen is normal. Adrenal glands: The adrenal glands are normal. Kidneys and ureters: There is no evidence of hydronephrosis. There is no evidence of renal calcifications. There are multiple renal hypodensities that cannot be further characterized on the current examination. Stomach and bowel: There is a segment of distal descending/proximal sigmoid colonic wall thickening consistent with severe acute colitis/diverticulitis. As an underlying colonic malignancy cannot be excluded, a follow-up examination after a course of treatment is recommended if clinically warranted. There is no evidence of intestinal perforation or obstruction. Extensive diverticulosis is present in the distal colon. Appendix: A normal appendix is identified. Intraperitoneal space: No free intraperitoneal air or abscess. Vasculature: Unremarkable.No abdominal aortic aneurysm. Lymph nodes: Unremarkable.No enlarged lymph nodes. Urinary bladder: There is nonspecific bladder wall thickening. This may be related to incomplete distention. Reproductive: Unremarkable as visualized. Bones/joints: There are moderate degenerative changes in the lower lumbar spine. No acute bony abnormality. Soft tissues: Unremarkable. CT/CT abdomen pelvis w con* [id number] IMPRESSION: 1. There is a segment of distal descending/proximal sigmoid colonic wall thickening consistent with severe acute colitis/diverticulitis. As an underlying colonic malignancy cannot be excluded, a follow-up examination after a course of treatment is recommended if clinically warranted. No abscess or free air. 2. There is mild ground-glass opacity in the lung bases and lingula concerning for mild pneumonitis versus atelectasis.
[2021-11-27] MEDS: sodium chloride 0.9% 1,000 ML 999 ML IV (18:56)
[2021-11-27 19:01] VITALS: RESP 16; O2SAT 95
[2021-11-27] MEDS: morphine 4 mg/mL SDV 1 mL IVP (19:01)
[2021-11-27] MEDS: ondansetron 2 mg/ML SDV 2 mL 4 MG IVP (19:03)
--- NOTE | 2021-11-27 19:11 | PC.NURSE ---
REPORT GIVEN TO [facility]ARE.
[2021-11-27 19:12] LABS: Basophils # 0.2 10^3/uL (0.0-0.1); Basophils % 1.1 %; Eosinophils # 0.8 10^3/uL (0.0-0.8); Eosinophils % 5.4 %; Hematocrit 46.2 % (42.0-52.0); Hemoglobin 15.1 g/dL (11.7-16.6); Lymphocytes # 3.7 10^3/uL (0.8-4.8); Lymphocytes % 24.7 %; Mean Corpuscular HGB Conc 32.7 g/dL (30.0-36.0); Mean Corpuscular Hemoglobin 30.4 pg (28.0-34.0); Mean Corpuscular Volume 93.1 fl (80-94); Mean Platelet Volume 9.7 fL (7.4-10.4); Monocytes # 0.9 10^3/uL (0.2-0.9); Monocytes % 5.8 %; Neutrophils # 9.36 10^3/uL (1.8-7.7); Neutrophils % 62.7 %; Nucleated Red Blood Cells % 0 %; Platelet Count 185 10^3/cmm (130-400); Red Blood Count 4.96 10^6/uL (4.1-5.3); Red Cell Distribution Width 14.6 % (12.1-15.1); White Blood Count 14.9 10^3/uL (4.0-10.0)
[2021-11-27 19:14] LABS: Alanine Aminotransferase 27 U/L (0-41); Albumin Level 4.6 g/dL (3.5-5.2); Alkaline Phosphatase 71 U/L (40-130); Anion Gap 12.9 (5-19); Aspartate Amino Transferase 30 U/L (0-40); Blood Urea Nitrogen 22 mg/dL (8-23); Calcium 9.4 mg/dL (8.5-10.5); Carbon Dioxide 30 mmol/L (22-29); Chloride 101 mmol/L (98-107); Globulin 1.9 g/dL (1.3-4.6); Glucose 76 mg/dL (65-115); Lipase 59 U/L (13-60); Osmolality Calculated 292 mOsm/kg (285-295); Potassium 3.9 mmol/L (3.5-5.1); Sodium 140 mmol/L (136-145); Total Bilirubin 0.3 mg/dL (0.15-1.2); Total Protein 6.5 g/dL (6.6-8.7)
[2021-11-27 19:16] LABS: Lactate (Lactic Acid level) 0.8 mmol/L (0.5-2.2)
[2021-11-27 19:27] LABS: INR 1.73 (0.8-1.2)
[2021-11-27] MEDS: iohexol 350 mg/mL 100 mL Btl 80 ML IV (19:34)
--- NOTE | 2021-11-27 19:58 | W.ED.ABDPA2 ---
HPI - Abdominal Pain General: Chief Complaint: Abdominal Pain Stated Complaint: Groan Pain\Back Pain Time Seen by Provider: 11/27/21 18:31 Source: patient and family History of Present Illness: 76-year-old gentleman with no prior history of belly surgery. He presents with left lower quadrant pain for the past couple of days. It became worse today. He denies vomiting or diarrhea. He denies significant nausea. He denies fever. No blood in the stool, no blood in the urine or dysuria. MD elicited complaint: abdominal pain Pertinent past history: none Onset (ago): day(s) Location: LLQ Severity: moderate Radiation: back Migration to: no migration Exacerbating factors: movement Relieving factors: nothing Associated Symptoms: Denies bloating, change in bowel habits, constipation, GI cramping, diarrhea, dysuria, fever(s), hematochezia, hematuria, nausea and vomiting Review of Systems Const: Denies: fever(s) Card: Denies: chest pain Resp: Denies: dyspnea, productive cough or non-productive cough GI: Denies: nausea, vomiting, diarrhea, constipation, bloating, GI cramping, change in bowel habits or hematochezia : Denies: dysuria or hematuria PFSH ED PFSH: Medical History (Updated 11/27/21 @ 21:07 by Rudy Tucker DO) Back pain 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 Diabetes Gout Hypertension PTSD (post-traumatic stress disorder) Surgical History H/O cystoscopy H/O vasectomy History of lumbar surgery Family History Mother Glaucoma Dementia Father Brain aneurysm Brother Psychiatric illness Denies family history of Diabetes CAD (coronary artery disease) Clotting disorder Hyperlipidemia Chronic kidney disease (CKD) Suicide Anesthesia complication Bleeding disorder Family history of premature coronary artery disease Lung disease Cancer Hypertension Stroke Social History Smoking and tobacco status: current some day smoker cigars Cigar details: occasionally Alcohol intake: current Alcohol intake frequency: holidays/special occasions only Current occupational status: retired Physical Exam Const: COMMON NORMALS: no acute distress GENERAL APPEARANCE: cooperative and ill appearing (Mildly); not frail appearing ORIENTATION/CONSCIOUSNESS: Yes awake HENMT: COMMON NORMALS: normocephalic, atraumatic and Normal external nose present HEAD & SCALP: normocephalic and atraumatic FACE & SINUS: normal facial exam and face symmetric NOSE: Normal external nose present Eye: COMMON NORMALS: Equal, round and reactive pupils present and EOMs intact bilaterally PUPIL: Yes Equal, round and reactive pupils present Neck/C-Spine: GENERAL: Yes trachea midline Chest: CHEST: Yes Symmetrical chest wall rise Resp: COMMON NORMALS: normal respiratory effort, No retractions, No use of accessory muscles and clear to auscultation bilaterally AUSCULTATION: clear to auscultation bilaterally Cardio: COMMON NORMALS: regular rate and regular rhythm RATE: regular rate RHYTHM: regular rhythm GI: INSPECTION: Yes abdominal distension (Mild) AUSCULTATION: Yes Hypoactive bowel sounds present PALPATION: Yes Tenderness to palpation present (GI) Details: LLQ and Yes Guarding due to palpation present (GI) Extremity: COMMON NORMALS: no pedal edema Neuro: NOEMÍ COMA SCALE: document GCS findings [place] coma scale eye opening: Spontaneous Noemí coma scale verbal response: Orientated [place] coma scale motor response: Obey commands [place] coma scale total score: 15 SENSORY EXAM: Yes extremities (intact) Psych: COMMON NORMALS: speech normal SPEECH: Yes normal speech Skin: COMMON NORMALS: no rashes or lesions noted GENERAL SKIN EXAM: no rashes or lesions noted Course Vital Signs: Vital signs: Vital Signs Temperature 98.1 F 11/27/21 21:26 Pulse Rate 61 11/27/21 21:26 Respiratory Rate 19 H 11/27/21 21:26 Blood Pressure 132/74 11/27/21 21:26 Pulse Oximetry 95 11/27/21 21:26 Oxygen Delivery Me thod 11/27/21 18:18 MDM - Abdominal Pain Medical Decision Making White blood cell count 15. BMP is normal. Liver enzymes are normal. CRP is 3. Urinalysis is negative. CT shows a segment of distal descending proximal sigmoid colon wall thickening consistent with severe acute colitis or diverticulitis. He will need follow-up. Option of admission was given to the patient, but he wishes to go home. Since he is not vomiting, and can hold on antibiotics, agreed to this. Cipro and Flagyl plus pain medication and antiemetic. He has an appointment with his PCP on Sunday in 2 days. Lab Data : 11/27/21 18:52 11/27/21 18:52 Labs/Radiology: Radiology Impressions Abdomen/Pelvis CT 11/27/21 18:54 IMPRESSION: 1. There is a segment of distal descending/proximal sigmoid colonic wall thickening consistent with severe acute colitis/diverticulitis. As an underlying colonic malignancy cannot be excluded, a follow-up examination after a course of treatment is recommended if clinically warranted. No abscess or free air. 2. There is mild ground-glass opacity in the lung bases and lingula concerning for mild pneumonitis versus atelectasis. Laboratory Results WBC 14.9 10^3/uL (4.0-10.0) H 11/27/21 18:52 RBC 4.96 10^6/uL (4.1-5.3) 11/27/21 18:52 Hgb 15.1 g/dL (11.7-16.6) 11/27/21 18:52 Hct 46.2 % (42.0-52.0) 11/27/21 18:52 MCV 93.1 fl (80-94) 11/27/21 18:52 MCH 30.4 pg (28.0-34.0) 11/27/21 18:52 MCHC 32.7 g/dL (30.0-36.0) 11/27/21 18:52 RDW 14.6 % (12.1-15.1) 11/27/21 18:52 Plt Count 185 10^3/cmm (130-400) 11/27/21 18:52 MPV 9.7 fL (7.4-10.4) 11/27/21 18:52 Neut % (Auto) 62.7 % 11/27/21 18:52 Lymph % (Auto) 24.7 % 11/27/21 18:52 [place] % (Auto) 5.8 % 11/27/21 18:52 Eos % (Auto) 5.4 % 11/27/21 18:52 Baso % (Auto) 1.1 % 11/27/21 18:52 Neut # (Auto) 9.36 10^3/uL (1.8-7.7) H 11/27/21 18:52 Lymph # (Auto) 3.7 10^3/uL (0.8-4.8) 11/27/21 18:52 [place] # (Auto) 0.9 10^3/uL (0.2-0.9) 11/27/21 18:52 Eos # (Auto) 0.8 10^3/uL (0.0-0.8) 11/27/21 18:52 Baso # (Auto) 0.2 10^3/uL (0.0-0.1) H 11/27/21 18:52 Nucleated RBC % (auto) 0 % 11/27/21 18:52 Nucleated RBCs # 0.0 /100WBC 11/27/21 18:52 PT 20.60 SECONDS (12.1-14.9) H 11/27/21 18:52 INR 1.73 (0.8-1.2) H 11/27/21 18:52 Sodium 140 mmol/L (136-145) 11/27/21 18:52 Potassium 3.9 mmol/L (3.5-5.1) 11/27/21 18:52 Chloride 101 mmol/L (98-107) 11/27/21 18:52 Carbon Dioxide 30 mmol/L (22-29) H 11/27/21 18:52 Anion Gap 12.9 (5-19) 11/27/21 18:52 BUN 22 mg/dL (8-23) 11/27/21 18:52 Creatinine 0.9 mg/dL (0.7-1.2) 11/27/21 18:52 GFR Calculation Not Reportable 11/27/21 18:52 Glucose 76 mg/dL (65-115) 11/27/21 18:52 Calculated Osmolality 292 mOsm/kg (285-295) 11/27/21 18:52 Lactate 0.8 mmol/L (0.5-2.2) 11/27/21 18:52 Calcium 9.4 mg/dL (8.5-10.5) 11/27/21 18:52 Total Bilirubin 0.3 mg/dL (0.15-1.2) 11/27/21 18:52 AST 30 U/L (0-40) 11/27/21 18:52 ALT 27 U/L (0-41) 11/27/21 18:52 Alkaline Phosphatase 71 U/L (40-130) 11/27/21 18:52 C-Reactive Protein 3.0 mg/L (0.0-4.9) 11/27/21 18:52 Total Protein 6.5 g/dL (6.6-8.7) L 11/27/21 18:52 Albumin 4.6 g/dL (3.5-5.2) 11/27/21 18:52 Globulin 1.9 g/dL (1.3-4.6) 11/27/21 18:52 Lipase 59 U/L (13-60) 11/27/21 18:52 Urine Color Yellow (Yellow) 11/27/21 20:24 Urine Appearance Clear (CLEAR) 11/27/21 20:24 Urine pH 5 (5-7) 11/27/21 20:24 Ur Specific Mineral 1.015 (1.005-1.030) 11/27/21 20:24 Urine Protein Neg (Negative) 11/27/21 20:24 Urine Glucose (UA) Norm (Normal) 11/27/21 20:24 Urine Ketones Negative (Negative) 11/27/21 20:24 Urine Blood Neg (Negative) 11/27/21 20:24 Urine Nitrate Negative (Negative) 11/27/21 20:24 Urine Bilirubin Neg (Negative) 11/27/21 20:24 Urine Urobilinogen Norm mg/dL (Negative) 11/27/21 20:24 Ur Leukocyte Esterase Negative (Negative) 11/27/21 20:24 Discharge Plan Discharge Patient Disposition: Home Clinical Impression: Diverticulitis Condition: Stable Prescriptions: New ondansetron 4 mg film 4 mg PO DAILY PRN (Reason: nausea and vomiting) Qty: 10 0RF Percocet 7.5-325 mg tablet 1 tab PO Q6H PRN (Reason: pain) Qty: 10 0RF Cipro 500 mg tablet 500 mg PO Q12H Qty: 20 0RF metronidazole 500 mg tablet 500 mg PO TID Qty: 30 0RF No Action warfarin 2 mg tablet 2 mg PO DAILY multivitamin Tablet 1 tab PO DAILY metformin 1,000 mg Tablet 500 mg PO BID gabapentin 300 mg Capsule 600 mg PO TID allopurinol 300 mg Tablet 300 mg PO DAILY hydrochlorothiazide 25 mg Tablet 25 mg PO DAILY lisinopril 40 mg Tablet 40 mg PO DAILY rosuvastatin [Crestor] 40 mg Tablet 20 mg PO DAILY Tart Sebastian [id number] mg Capsule 1 cap PO DAILY naproxen sodium [Aleve] 220 mg Capsule 220 mg PO BID PRN (Reason: Pain) cetirizine [Zyrtec] 10 mg Tablet 10 mg PO DAILY Discharge Orders: Discharge ED (Routine); Ordered 11/27/21 Ordered By: Rudy Tucker Referrals: [facility] [Primary Care Provider] - 1-3 days (as scheduled) Patient Instructions: Diverticulitis (ED), Opioid Safety Activity Restrictions/Additional Instructions: Return for fever greater than 100 despite 2-3 doses of antibiotics, worsening pain despite treatment, vomiting liquids or medications, blood in the stool, any other concerning symptoms. Follow-up with your doctor. Coding Level of Care Code ED Supervisor Liquefaction for Chg Fwd Exam Comprehensive
[2021-11-27] MEDS: piperacillin-tazobactam 4.5 GM in sodium chloride 0.9% (plus) 50 ML IV (20:25)
[2021-11-27 20:42] LABS: Add Urine Microscopic? NO; Charge for UA Resulting for Rev
[2021-11-27 20:46] LABS: Bilirubin Urine Neg (Negative); Blood Urine Neg (Negative); Glucose Urine UA Norm (Normal); Ketones Urine Negative (Negative); Leukocyte Esterase Urine Negative (Negative); Nitrate Urine Negative (Negative); Protein Urine Neg (Negative); Specific Gravity, Urine 1.015 (1.005-1.030); Urine Appearance Clear (CLEAR); Urine Color Yellow (Yellow); Urobilinogen Urine Norm (Negative); pH Urine 5 (5-7)
[2021-11-27 21:24] VITALS: RESP 20; O2SAT 98
[2021-11-27] MEDS: ondansetron 4 MG Tablet PO (21:24)
[2021-11-27] MEDS: oxyCODONE-APAP 5-325 mg Tablet 2 TAB PO (21:24)
[2021-11-27 21:26] VITALS: BP 132/74; PULSE 61; RESP 19; TEMP 36.7; O2SAT 95
== END 2021-11-27 21:28 | disposition home or self-care (01) ==
PROVIDERS: Emergency Provider Emergency Medicine
DX: K57.92 Diverticulitis of intestine, part unspecified, without perforation or abscess without bleeding (principal); Z79.01 Long term (current) use of anticoagulants; Z79.84 Long term (current) use of oral hypoglycemic drugs; E11.9 Type 2 diabetes mellitus without complications; I10 Essential (primary) hypertension; F17.210 Nicotine dependence, cigarettes, uncomplicated
CPT/HCPCS: 74177; 80053; 81003; 83605; 83690; 85025; 85610; 86140; 96365; 96375; 99285; J2270; J2405; J2543; J7030; Q0162; Q9967

== ENCOUNTER 2022-03-13 13:41 | Emergency (ER) | payer OTHER, SELFPAY ==
[2022-03-13 14:13] VITALS: BP 162/87; PULSE 64; RESP 14; TEMP 36.8; O2SAT 95; BMI 28.7
[2022-03-13 15:42] LABS: Basophils # 0.1 10^3/uL (0.0-0.1); Basophils % 1.3 %; Eosinophils # 0.4 10^3/uL (0.0-0.8); Eosinophils % 4.4 %; Hematocrit 46.6 % (42.0-52.0); Hemoglobin 14.9 g/dL (11.7-16.6); Lymphocytes # 2.5 10^3/uL (0.8-4.8); Lymphocytes % 27.6 %; Mean Corpuscular Hemoglobin 30.2 pg (28.0-34.0); Mean Corpuscular Volume 94.5 fl (80-94); Mean Platelet Volume 10.1 fL (7.4-10.4); Monocytes # 0.5 10^3/uL (0.2-0.9); Monocytes % 5.2 %; Neutrophils # 5.48 10^3/uL (1.8-7.7); Neutrophils % 61.2 %; Nucleated Red Blood Cells % 0 %; Platelet Count 163 10^3/cmm (130-400); Red Blood Count 4.93 10^6/uL (4.1-5.3)
[2022-03-13 16:12] LABS: Alanine Aminotransferase 23 U/L (0-41); Albumin Level 4.2 g/dL (3.5-5.2); Alkaline Phosphatase 92 U/L (40-130); Aspartate Amino Transferase 30 U/L (0-40); Blood Urea Nitrogen 15 mg/dL (8-23); Calcium 6.9 mg/dL (8.5-10.5); Carbon Dioxide 32 mmol/L (22-29); Chloride 102 mmol/L (98-107); Globulin 2.7 g/dL (1.3-4.6); Glucose 109 mg/dL (65-115); Lipase 41 U/L (13-60); Osmolality Calculated 295 mOsm/kg (285-295); Sodium 142 mmol/L (136-145); Total Bilirubin 0.3 mg/dL (0.15-1.2); Total Protein 6.9 g/dL (6.6-8.7)
--- NOTE | 2022-03-13 18:05 | W.ED.ABDPA2 ---
HPI - Abdominal Pain General: Chief Complaint: Abdominal Pain Stated Complaint: abd pain Time Seen by Provider: 03/13/22 18:04 History of Present Illness: 76-year-old male comes in today with complaints of pain in the left lower quadrant of the abdomen. Patient reports pain starting 2 to 3 days ago. Patient denies any fever, persistent nausea vomiting, blood in vomit or stool. Patient reports pain is similar to prior episode of diverticulitis which he was diagnosed with in October. Patient also had a colonoscopy done in July that was unremarkable. Patient appears nontoxic. Patient appears in mild pain. 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 Diabetes Gout Hypertension PTSD (post-traumatic stress disorder) Surgical History H/O cystoscopy H/O vasectomy History of lumbar surgery Family History Mother Glaucoma Dementia Father Brain aneurysm Brother Psychiatric illness Denies family history of Diabetes CAD (coronary artery disease) Clotting disorder Hyperlipidemia Chronic kidney disease (CKD) Suicide Anesthesia complication Bleeding disorder Family history of premature coronary artery disease Lung disease Cancer Hypertension Stroke Social History Smoking and tobacco status: current some day smoker cigars Cigar details: occasionally Alcohol intake: current Alcohol intake frequency: holidays/special occasions only Current occupational status: retired Physical Exam Const: COMMON NORMALS: alert HENMT: COMMON NORMALS: normocephalic HEAD & SCALP: normocephalic Neck/C-Spine: COMMON NORMALS: full ROM Resp: COMMON NORMALS: normal respiratory effort and clear to auscultation bilaterally AUSCULTATION: clear to auscultation bilaterally Cardio: COMMON NORMALS: regular rate and regular rhythm RATE: regular rate RHYTHM: regular rhythm GI: COMMON NORMALS: Soft to palpation AUSCULTATION: Yes normoactive bowel sounds PALPATION: Yes Soft to palpation and Yes Tenderness to palpation present (GI) Details: LLQ : COMMON NORMALS: Yes no CVA tenderness BLADDER/KIDNEY EXAM: Yes no CVA tenderness Back/Pelvis: COMMON NORMALS: no CVA tenderness Extremity: COMMON NORMALS: no pedal edema Neuro: SENSORIUM/ORIENTATION: Yes alert Skin: COMMON NORMALS: turgor normal GENERAL SKIN EXAM: turgor normal Course Vital Signs: Vital signs: Vital Signs Temperature 98.3 F 03/13/22 14:13 Pulse Rate 54 L 03/13/22 18:09 Respiratory Rate 16 03/13/22 18:09 Blood Pressure 175/84 03/13/22 18:09 Pulse Oximetry 97 03/13/22 18:09 Oxygen Delivery Me thod 03/13/22 18:09 MDM - Abdominal Pain Medical Decision Making 76-year-old male patient comes in with left lower quadrant abdominal pain. On exam patient has a soft abdomen with normal active bowel sounds and tenderness in the left lower quadrant. No signs of peritonitis are noted. Differential diagnosis includes but not limited to colitis, diverticulitis, renal calculi, abscess. Laboratory values CBC and CMP were unremarkable. Reviewed exam with patient with recommendations for treatment and follow-up. Patient agreed to plan of antibiotics and monitoring for worsening symptoms. Patient knows to return for red flags such as high fever, blood in vomit or stool, or uncontrolled pain. Lab Data 03/13/22 15:05 03/13/22 15:05 Labs/Radiology: Laboratory Results WBC 9.0 10^3/uL (4.0-10.0) 03/13/22 15:05 RBC 4.93 10^6/uL (4.1-5.3) 03/13/22 15:05 Hgb 14.9 g/dL (11.7-16.6) 03/13/22 15:05 Hct 46.6 % (42.0-52.0) 03/13/22 15:05 MCV 94.5 fl (80-94) H 03/13/22 15:05 MCH 30.2 pg (28.0-34.0) 03/13/22 15:05 MCHC 32.0 g/dL (30.0-36.0) 03/13/22 15:05 RDW 14.0 % (12.1-15.1) 03/13/22 15:05 Plt Count 163 10^3/cmm (130-400) 03/13/22 15:05 MPV 10.1 fL (7.4-10.4) 03/13/22 15:05 Neut % (Auto) 61.2 % 03/13/22 15:05 Lymph % (Auto) 27.6 % 03/13/22 15:05 [place] % (Auto) 5.2 % 03/13/22 15:05 Eos % (Auto) 4.4 % 03/13/22 15:05 Baso % (Auto) 1.3 % 03/13/22 15:05 Neut # (Auto) 5.48 10^3/uL (1.8-7.7) 03/13/22 15:05 Lymph # (Auto) 2.5 10^3/uL (0.8-4.8) 03/13/22 15:05 [place] # (Auto) 0.5 10^3/uL (0.2-0.9) 03/13/22 15:05 Eos # (Auto) 0.4 10^3/uL (0.0-0.8) 03/13/22 15:05 Baso # (Auto) 0.1 10^3/uL (0.0-0.1) 03/13/22 15:05 Nucleated RBC % (auto) 0 % 03/13/22 15:05 Nucleated RBCs # 0.0 /100WBC 03/13/22 15:05 Sodium 142 mmol/L (136-145) 03/13/22 15:05 Potassium 4.0 mmol/L (3.5-5.1) 03/13/22 15:05 Chloride 102 mmol/L (98-107) 03/13/22 15:05 Carbon Dioxide 32 mmol/L (22-29) H 03/13/22 15:05 Anion Gap 12.0 (5-19) 03/13/22 15:05 BUN 15 mg/dL (8-23) 03/13/22 15:05 Creatinine 1.1 mg/dL (0.7-1.2) 03/13/22 15:05 GFR Calculation Not Reportable 03/13/22 15:05 Glucose 109 mg/dL (65-115) 03/13/22 15:05 Calculated Osmolality 295 mOsm/kg (285-295) 03/13/22 15:05 Calcium 6.9 mg/dL (8.5-10.5) L 03/13/22 15:05 Total Bilirubin 0.3 mg/dL (0.15-1.2) 03/13/22 15:05 AST 30 U/L (0-40) 03/13/22 15:05 ALT 23 U/L (0-41) 03/13/22 15:05 Alkaline Phosphatase 92 U/L (40-130) 03/13/22 15:05 Total Protein 6.9 g/dL (6.6-8.7) 03/13/22 15:05 Albumin 4.2 g/dL (3.5-5.2) 03/13/22 15:05 Globulin 2.7 g/dL (1.3-4.6) 03/13/22 15:05 Lipase 41 U/L (13-60) 03/13/22 15:05 Discharge Plan Discharge Patient Disposition: Home Clinical Impression: Diverticulitis Condition: Stable Prescriptions: New hydrocodone-acetaminophen 5-325 mg tablet 1 tab PO Q6H PRN (Reason: pain (scale score 7-10)) Qty: 10 0RF ondansetron 4 mg tablet,disintegrating 4 mg PO Q8H PRN (Reason: nausea and vomiting) Qty: 10 0RF Continued metronidazole 500 mg tablet 500 mg PO TID Qty: 21 0RF Cipro 500 mg tablet 500 mg PO Q12H Qty: 14 0RF Discontinued oxycodone-acetaminophen [Percocet] 7.5-325 mg tablet 1 tab PO Q6H PRN (Reason: pain) Qty: 10 0RF No Action warfarin 2 mg tablet 2 mg PO DAILY multivitamin Tablet 1 tab PO DAILY metformin 1,000 mg Tablet 500 mg PO BID gabapentin 300 mg Capsule 600 mg PO TID allopurinol 300 mg Tablet 300 mg PO DAILY hydrochlorothiazide 25 mg Tablet 25 mg PO DAILY lisinopril 40 mg Tablet 40 mg PO DAILY rosuvastatin [Crestor] 40 mg Tablet 20 mg PO DAILY Tart Sebastian [id number] mg Capsule 1 cap PO DAILY naproxen sodium [Aleve] 220 mg Capsule 220 mg PO BID PRN (Reason: Pain) cetirizine [Zyrtec] 10 mg Tablet 10 mg PO DAILY ondansetron 4 mg film 4 mg PO DAILY PRN (Reason: nausea and vomiting) Qty: 10 0RF Discharge Orders: Discharge ED (Routine); Ordered 03/13/22 Ordered By: Mode Isaac Referrals: [facility] [Primary Care Provider] - Discharge Diet: Usual diet Discharge Activity: Increase activity as tolerated Patient Instructions: Diverticulitis (ED), Opioid Safety Activity Restrictions/Additional Instructions: Home and rest. Activity as tolerated. Drink plenty of fluids. Take medications as directed. Eat a light diet with no husks or seeds in the diet until pain resolves. Follow-up with primary care in 1 week for recheck. Return to ER for worsening symptoms such as fever greater than 100.4, inability to hold fluids down, blood in vomit or stool, or new concerns. Coding Level of Care Code ED Senior Functional Analyst for Babar Ng
[2022-03-13 18:09] VITALS: BP 175/84; PULSE 54; RESP 16; O2SAT 97
[2022-03-13] MEDS: ciprofloxacin 500 mg Tablet PO (18:24)
[2022-03-13] MEDS: metroNIDAZOLE 500 MG Tablet PO (18:24)
== END 2022-03-13 18:24 | disposition home or self-care (01) ==
PROVIDERS: Emergency Medicine; Emergency Provider Nurse Practitioner Family
DX: K57.92 Diverticulitis of intestine, part unspecified, without perforation or abscess without bleeding (principal); Z79.01 Long term (current) use of anticoagulants; Z79.84 Long term (current) use of oral hypoglycemic drugs; F17.210 Nicotine dependence, cigarettes, uncomplicated; E11.9 Type 2 diabetes mellitus without complications; I10 Essential (primary) hypertension
CPT/HCPCS: 36415; 80053; 83690; 85025; 99283

== ENCOUNTER → 2022-10-23 14:28 | Outpatient (BNVA) | payer OTHER, SELFPAY | PROVIDERS: PCP Emergency Medicine Emergency Medical Services; Visit Provider Dermatology | DX: L82.0 Inflamed seborrheic keratosis (principal); L57.0 Actinic keratosis; D22.5 Melanocytic nevi of trunk; L82.1 Other seborrheic keratosis; L98.1 Factitial dermatitis; D23.71 Other benign neoplasm of skin of right lower limb, including hip; I87.2 Venous insufficiency (chronic) (peripheral) | CPT/HCPCS: 17000; 17003; 17110; 99213 ==

== ENCOUNTER 2023-06-12 07:34 | Outpatient (CLI) | payer OTHER, SELFPAY ==
--- NOTE | 2023-06-12 07:39 | MR_ITS ---
WS: [id number] MRI LUMBAR SPINE NONCONTRAST TECHNIQUE: Sagittal T1, T2 and STIR imaging. Axial T1 and T2 imaging. CLINICAL INFORMATION: LOW BACK PAIN W/RADICULOPATHY COMPARISON: None. FINDINGS: Mild lumbar curve. No acute compression. Slight anterolisthesis L4 on L5. Prior laminectomy defects L 4 with decompression. L1-L2: Mild annular bulging with slight effacement of the ventral thecal sac. Mild facet arthropathy. Mild LEFT foraminal narrowing. L2-L3: Mild annular bulging. Mild central canal stenosis. Impingement RIGHT subarticular recess. Mode rate facet arthropathy. Foramen are patent. L3-L4: Mild annular bulging. Impingement of the LEFT subarticular recess. Mild facet arthropathy. Mil d bilateral foraminal narrowing. Mild central canal stenosis. L4-L5: Slight anterolisthesis L4 on L5. Moderate facet arthropathy. Small RIGHT facet effusion. Ivan ectomy defects. Slight narrowing of the subarticular recess bilaterally. Mild RIGHT foraminal narrowi ng. L5-S1: Mild annular bulging. Moderate facet arthropathy. Spinal canal and foramen are patent. Visualized pelvic bony structures: Normal. Paravertebral soft tissues: Normal. IMPRESSION: 1. Mild lumbar curve. Slight retrolisthesis L4 on L5. Prior laminectomy defects L4 with decompressio n of the spinal canal. 2. Mild central canal stenosis L2-L3 and L3-4. Impingement on the LEFT subarticular recess L3-4. 3. Annular bulging L4-5 with slight narrowing subarticular recess bilaterally. Moderate facet arthro karon with a RIGHT facet effusion compatible with degenerative or inflammatory synovitis. 4. Mild foraminal narrowing LEFT L1-2, bilateral L3-4, and RIGHT L4-5
== END 2023-06-12 07:35 | disposition home or self-care (01) ==
LOC: RAD 07:35
PROVIDERS: PCP Emergency Medicine Emergency Medical Services; Visit Provider Emergency Medicine Emergency Medical Services
DX: M43.16 Spondylolisthesis, lumbar region (principal); M48.061 Spinal stenosis, lumbar region without neurogenic claudication; M51.16 Intervertebral disc disorders with radiculopathy, lumbar region; M47.26 Other spondylosis with radiculopathy, lumbar region
CPT/HCPCS: 72148

== ENCOUNTER → 2023-09-27 11:37 | Outpatient (BNVA) | payer OTHER, SELFPAY | PROVIDERS: PCP Emergency Medicine Emergency Medical Services; Visit Provider Podiatrist Foot & Ankle Surgery | DX: S92.411A Displaced fracture of proximal phalanx of right great toe, initial encounter for closed fracture; X58.XXXA Exposure to other specified factors, initial encounter; G62.9 Polyneuropathy, unspecified; E11.42 Type 2 diabetes mellitus with diabetic polyneuropathy | CPT/HCPCS: 73630; 99203 ==

== ENCOUNTER → 2023-10-31 13:30 | Outpatient (BNVA) | payer OTHER, SELFPAY | PROVIDERS: PCP Emergency Medicine Emergency Medical Services; Visit Provider Nurse Practitioner Family | DX: D22.5 Melanocytic nevi of trunk (principal); L82.1 Other seborrheic keratosis; L91.8 Other hypertrophic disorders of the skin; D23.71 Other benign neoplasm of skin of right lower limb, including hip; I87.2 Venous insufficiency (chronic) (peripheral); L57.0 Actinic keratosis; D48.5 Neoplasm of uncertain behavior of skin; S50.912A Unspecified superficial injury of left forearm, initial encounter; X58.XXXA Exposure to other specified factors, initial encounter; Z85.828 Personal history of other malignant neoplasm of skin | CPT/HCPCS: 11102; 17000; 99214 ==

== ENCOUNTER → 2024-03-14 09:15 | Outpatient (BNVA) | payer OTHER, SELFPAY | PROVIDERS: PCP Emergency Medicine Emergency Medical Services; Visit Provider Podiatrist Foot & Ankle Surgery | DX: S92.411A Displaced fracture of proximal phalanx of right great toe, initial encounter for closed fracture; G62.9 Polyneuropathy, unspecified; E11.42 Type 2 diabetes mellitus with diabetic polyneuropathy; Z79.84 Long term (current) use of oral hypoglycemic drugs; X58.XXXA Exposure to other specified factors, initial encounter | CPT/HCPCS: 99213 ==

== ENCOUNTER → 2024-05-22 10:24 | Outpatient (BNVA) | payer OTHER, SELFPAY | PROVIDERS: PCP Emergency Medicine Emergency Medical Services; Visit Provider Podiatrist Foot & Ankle Surgery | DX: M79.672 Pain in left foot (principal); M25.572 Pain in left ankle and joints of left foot; S92.411A Displaced fracture of proximal phalanx of right great toe, initial encounter for closed fracture; G62.9 Polyneuropathy, unspecified; E11.42 Type 2 diabetes mellitus with diabetic polyneuropathy; X58.XXXA Exposure to other specified factors, initial encounter; Z79.84 Long term (current) use of oral hypoglycemic drugs; M93.872 Other specified osteochondropathies, left ankle and foot | CPT/HCPCS: 99213 ==

== ENCOUNTER 2024-06-09 07:28 | Outpatient (CLI) | payer OTHER, SELFPAY ==
--- NOTE | 2024-06-09 07:38 | USCV_ITS ---
Everardo Roman Age: 78 Gender: M : 1945 Exam Date: 06/09/2024 07:52 Ordering Phys: Kristin Rosen Technologist: [place] [facility] [place]: cp murmur BP: 130 / 75 HR: 52 Rhythm: Sinus Technical Quality: Adequate MEASUREMENTS (Male / Female) Normal Values 2D ECHO LV Diastolic Diameter PLAX 3.9 cm 4.2 - 5.9 / 3.9 - 5.3 cm IVS Diastolic Thickness 1.3 cm 0.6 - 1.0 / 0.6 - 0.9 cm IVS Systolic Thickness 1.8 cm LVPW Diastolic Thickness 1.2 cm 0.6 - 1.0 / 0.6 - 0.9 cm LVPW Systolic Thickness 1.7 cm LVOT Diameter 2.1 cm LV Ejection Fraction 2D Teich 53.4 % LV Ejection Fraction MOD 4C 62.9 % LV Ejection Fraction MOD 2C 61.1 % LV Ejection Fraction 2C AL 61.6 % LA Diameter 3.4 cm RA Systolic Volume 4C AL 67.8 ml RA Systolic Volume 4C MOD 63.9 ml Aorta at Sinotubular Diameter 3.1 cm M-MODE LA Ao Ratio MM 0.9 AV Cusp Separation MM 2.0 cm DOPPLER AV Peak Velocity 283.7 cm/s MV Peak Velocity 127.0 cm/s MV Area PHT 2.5 cm squared Mitral E to A Ratio 0.8 TV Peak Velocity 191.3 cm/s TR Peak Velocity 238.0 cm/s TR Peak Gradient 22.7 mmHg TV Peak E Velocity 114.0 cm/s PV Peak Velocity 111.0 cm/s FINDINGS Left Ventricle Left ventricle is normal in size. LV systolic function is normal with EF of 50-55%. No regional wall motion abnormalities are seen. Grade 1 diastolic dysfunction. Right Ventricle Normal in size and function Right Atrium Normal in size Left Atrium Normal in size Mitral Valve Mild mitral annular calcification. Mild mitral regurgitation. Aortic Valve Aortic valve is thickened. Mild aortic regurgitation. Tricuspid Valve Insufficient TR jet to calculate RVSP. Pulmonic Valve Not well visualized Pericardium Normal Aorta Normal in size IVC Not well visualized CONCLUSIONS LV systolic function is normal with EF of 50-55% Grade 1 diastolic dysfunction Mild mitral regurgitation Mild aortic regurgitation No comparison studies are available. Timbo Mendoza MD (Electronically Signed) Final Date: 25 June 2024 09:38 S
== END 2024-06-09 07:29 | disposition home or self-care (01) ==
PROVIDERS: PCP Emergency Medicine Emergency Medical Services; Visit Provider Nurse Practitioner
DX: R01.1 Cardiac murmur, unspecified (principal); R93.1 Abnormal findings on diagnostic imaging of heart and coronary circulation; I34.0 Nonrheumatic mitral (valve) insufficiency; I34.81 Nonrheumatic mitral (valve) annulus calcification; I35.1 Nonrheumatic aortic (valve) insufficiency
CPT/HCPCS: 93306

== ENCOUNTER → 2024-08-27 13:13 | Outpatient (BNVA) | payer OTHER, SELFPAY | PROVIDERS: PCP Emergency Medicine Emergency Medical Services; Visit Provider Internal Medicine | DX: R07.9 Chest pain, unspecified (principal); I10 Essential (primary) hypertension; E11.9 Type 2 diabetes mellitus without complications; Z79.84 Long term (current) use of oral hypoglycemic drugs; Z86.718 Personal history of other venous thrombosis and embolism; Z87.891 Personal history of nicotine dependence; R06.02 Shortness of breath | CPT/HCPCS: 93005; 99204 ==

== ENCOUNTER 2024-09-12 07:19 | Outpatient (CLI) | payer OTHER, SELFPAY ==
--- NOTE | 2024-09-12 | ECG_ITS ---
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 Interpretive Statements Lung unchanged pre/post procedure; Intraprocedure shortess of breath; Symptoms resoled by discharge PROCEDURE: At the baseline, the EKG revealed sinus bradycardia with a left bundle branch block pattern. Diffuse nonspecific ST-T changes. The baseline heart was 54 bpm with a blood pressue of 150/81 mm of Hg Lexiscan was infused over a period of 20 seconds. A total of 0.4 milligrams of Lexiscan was infused. The stress phase was continued for a total of 5 minutes. Heart rate at the end of the stress phase was 72 bpm with a blood pressure 133/71 mm of Hg. The EKG at the peak infusion revealed no significant changes. Sestamibi was injected 20 seconds after the Lexiscan infusion. Heart rate at the end of the recovery phase was 68 bpm with a blood pressure of 130/73 mm of Hg. CONCLUSION: 1. No significant EKG changes with the LexiScan infusion 2. No LexiScan induced chest pain or cardiac arrhythmia 3. Normal blood pressure and heart rate response 4. Sestamibi/sestamibi perfusion scan pending; see separate report. Electronically Signed On 09-12-2024 21:53:30 CDT by Tran York M.D. [email or web address]
[2024-09-12 07:40] VITALS: BMI 30.7
--- NOTE | 2024-09-12 07:42 | NMCV_ITS ---
NM itzel perf SPECT r/s* [id number] Everardo Roman Age: 79 Gender: M : 1945 Exam Date: 09/12/2024 08:45 Ordering Phys: Timbo Mendoza M.D ([email or web address]) Technologist: RUBEN Kumar Exam Location: [facility] Indications: CP STRESS TEST [facility] IMAGE PROTOCOL Rest/Stress 1 Lexiscan Day Radiopharmaceutical Dose (mCi) Administration Site Administered by Rest: Tc-99m 10.8 IV Rizwana Turnre, [employer] Sestamibi Stress:Tc-99m 33 IV Rizwana Altmangle, [employer] Sestamibi Rest: 09/12/2024 45 Discovery 630 Stress: 09/12/2024 30 Discovery 630 0.4mg Lexiscan. Images obtained in supine and prone position. SPECT RESULTS Technical Quality: Good Raw Data Analysis: Normal Image Corrections: No attenuation or motion correction applied Summed Stress Score: 3 Summed Rest Score: 2 Summed Difference Score: 2 PERFUSION FINDINGS Patchy areas of slightly decreased tracer uptake were noted on the basal inferolateral, mid inferoseptal and apical inferior regions. Summed relative was noted in the apical inferior region FUNCTIONAL RESULTS (calculated via Gated SPECT) Stress Image LV EF (%): 72 Stress EDV (mL):107 TID: 1.01 Stress ESV (mL):30 FUNCTIONAL FINDINGS: Segmental wall motion analysis revealing no gross wall motion abnormalities IMPRESSIONS 1. Myocardial perfusion imaging revealing patchy areas of persistent decreased tracer uptake in the inferoseptal and inferolateral regions, most likely represent attrition artifact. A small area of reversible defect in the apical inferior region, may suggest ischemia in the distribution of the distal right coronary artery. 2. Normal LV ejection fraction of 72%. 3. LV wall motion analysis revealing no gross wall motion abnormalities. 4. Normal LV volume No similar previous studies are available for comparison Dr Tran York MD [facility] (Electronically Signed) Final Date: 12 September 2024 14:15 S
[2024-09-12] MEDS: regadenoson 0.4 Mg/5 ml Syringe IVP (09:11)
[2024-09-12 09:26] VITALS: BP 130/73; PULSE 67
== END 2024-09-12 07:20 | disposition home or self-care (01) ==
LOC: CDL 07:21
PROVIDERS: PCP Emergency Medicine Emergency Medical Services; Visit Provider Internal Medicine
DX: R06.02 Shortness of breath (principal); R93.89 Abnormal findings on diagnostic imaging of other specified body structures
CPT/HCPCS: 36415; 78452; 93017; 96374; A9500; J2785

== ENCOUNTER → 2024-12-16 08:48 | Outpatient (BNVA) | payer OTHER, SELFPAY | PROVIDERS: PCP Emergency Medicine Emergency Medical Services; Visit Provider Nurse Practitioner Family | DX: L82.1 Other seborrheic keratosis (principal); D22.5 Melanocytic nevi of trunk; D23.71 Other benign neoplasm of skin of right lower limb, including hip; Z08 Encounter for follow-up examination after completed treatment for malignant neoplasm; Z85.828 Personal history of other malignant neoplasm of skin | CPT/HCPCS: 11102; 17000; 99213 ==

== ENCOUNTER → 2024-12-23 12:41 | Outpatient (BNVA) | payer OTHER, SELFPAY | PROVIDERS: PCP Emergency Medicine Emergency Medical Services; Visit Provider Dermatology | DX: C44.41 Basal cell carcinoma of skin of scalp and neck (principal) | CPT/HCPCS: 13132; 17311 ==

== ENCOUNTER → 2025-03-12 09:15 | Outpatient (BNVA) | payer OTHER, SELFPAY | PROVIDERS: PCP Emergency Medicine Emergency Medical Services; Visit Provider Podiatrist Foot & Ankle Surgery | DX: E11.42 Type 2 diabetes mellitus with diabetic polyneuropathy (principal); E11.8 Type 2 diabetes mellitus with unspecified complications; M25.579 Pain in unspecified ankle and joints of unspecified foot; S92.411A Displaced fracture of proximal phalanx of right great toe, initial encounter for closed fracture; G62.9 Polyneuropathy, unspecified; X58.XXXA Exposure to other specified factors, initial encounter; Z79.84 Long term (current) use of oral hypoglycemic drugs | CPT/HCPCS: 99213 ==